=== PATIENT | male | born 1980 | race Hispanic/Latino ===

== ENCOUNTER 2025-04-28 13:05 | Emergency (ER) | payer SELFPAY | END 2025-04-28 14:20 | disposition home or self-care (01) | LOC: EDBD 13:05 → JD.ED 13:05 | DX: G51.0 Bell's palsy (principal); R03.0 Elevated blood-pressure reading, without diagnosis of hypertension; Z79.899 Other long term (current) drug therapy | CPT/HCPCS: 70450; 82947; 99284; J7512; 99283 ==